=== PATIENT | male | born 1955 | race Caucasian/White ===

== ENCOUNTER 2023-03-16 15:08 | Outpatient (REF) | payer MEDICAID, SELFPAY ==
[2023-03-16 17:16] LABS: Creatinine Urine 273.73 mg/dL
== END 2023-03-16 15:09 | disposition home or self-care (01) ==
LOC: HO.HHCL 15:08
PROVIDERS: Visit Provider Internal Medicine
DX: E11.9 Type 2 diabetes mellitus without complications (principal)
CPT/HCPCS: 82043; 82570